=== PATIENT | female | born 1960 | race Caucasian/White ===

== ENCOUNTER → 2019-01-23 | Outpatient (CLI) | payer BC ==
[2019-01-23 15:06] LABS: Anisocytosis Slight; Basophils # (A) 0.1 k/uL (0-0.2); Basophils % (A) 1 %; Eosinophils # (A) 0.2 k/uL (0-0.7); Eosinophils % (A) 2 %; HCT 45.7 % (34.0-46.0); HGB 15.1 gm/dL (11.4-16.0); Lymphocytes # (A) 2.1 k/uL (1.0-4.8); Lymphocytes % (A) 21 %; MCH 28.4 pg (25.0-35.0); MCHC 33.1 g/dL (31.0-37.0); MCV 85.9 fL (80.0-100.0); Mean Platelet Volume 6.8; Monocytes # (A) 0.6 k/uL (0-1.0); Monocytes % (A) 6 %; Neutrophils # (A) 6.7 k/uL (1.3-7.7); Neutrophils % (A) 69 %; Platelet Count 251 k/uL (150-450); RBC 5.32 m/uL (3.80-5.40); RDW 16.1 % (11.5-15.5); WBC 9.8 k/uL (3.8-10.6)
[2019-01-23 15:16] LABS: Potassium 4.3 mmol/L (3.5-5.1)
== END | disposition home or self-care (01) ==
LOC: LABPAT 13:33
PROVIDERS: ATTEND Orthopaedic Surgery
DX: Z01.818 Encounter for other preprocedural examination (principal); Z01.812 Encounter for preprocedural laboratory examination; M75.41 Impingement syndrome of right shoulder
CPT/HCPCS: 36415; 80051; 85025; 93005

== ENCOUNTER 2019-02-08 07:29 | Day surgery (SDC) | payer BC, OTHER ==
[2019-01-25 10:33] VITALS: BMI 41.1
--- NOTE | 2019-02-07 14:06 | HP ---
HISTORY AND PHYSICAL DATE OF SURGERY: 02/08/2019 Gail Arvizu is a 58-year-old patient seen with progressive right shoulder pain. We discussed treatment options with her. She elected to proceed with arthroscopy. Consent was obtained. PAST MEDICAL HISTORY: Hypertension, hyperlipidemia. PAST SURGICAL HISTORY: Left knee arthroscopy. DAILY MEDICATIONS: Losartan and simvastatin. ALLERGIES: PENICILLIN. SOCIAL HISTORY: She denies tobacco use. PHYSICAL EVALUATION RIGHT SHOULDER: Flexion 130 degrees, abduction 120 degrees, external rotation is 30 degrees with weakness, tenderness along the anterolateral acromion rotator cuff insertion site. Drop-arm sign positive. Distal neurovascular exam intact. RIGHT SHOULDER RADIOGRAPHS: Revealed a type 2 anterior acromion. Cystic changes of the tuberosity and glenohumeral joint osteoarthritis. A right shoulder MRI revealed retracted rotator cuff tendon tear. IMPRESSION: 1. Right shoulder impingement with rotator cuff tear. 2. Right shoulder acromioclavicular joint osteoarthritis. 3. Hypertension. 4. Hyperlipidemia. PLAN: Right shoulder arthroscopy with subacromial decompression, possible arthroscopic rotator cuff repair, possible Titi procedure and debridement. MMODL / IJN: [id number] /
[~2019-02-08 07:29] MED LIST: DEXAMETHASONE SOD PHOSPHATE 10 MG/ML 1 ML VIAL IV ONE; HYDROmorphone 0.5 MG/0.5 ML SYRINGE IVP PRN; KETOROLAC 30 MG/ML 1 ML VIAL IVP SCH; LACTATED RINGERS 1,000 ML IV SCH; LIDOCAINE 1% 20 ML VIAL (10MG/ML) FOR IV START INTRADERMA PRN; MIDAZOLAM 2 MG/2 ML VIAL IV PRN; ONDANSETRON 4 MG/2 ML VIAL IVP ONE; ONDANSETRON 4 MG/2 ML VIAL IVP PRN
--- NOTE | 2019-02-08 09:02 | P.ANPRN ---
Procedure Note - Anesthesia - Nerve Block Performed Right Interscalene Single Time Out Performed: Yes Date of Procedure: 02/08/19 Procedure Start Time: 08:45 Location of Patient Procedure: PreOp Indication: Acute Post-Operative Pain, Dx/Pain Location (Right Shoulder Pain), Requested by Surgeon Sedation Type: Sedate with meaningful contact maintained Preparation: Sterile Prep Position: Supine Catheter: None Needle Types: Pajunk Needle Gauge: 21 Ultrasound used to visualize needle placement: Yes Ultrasound used to observe medication spread: Yes Injectate: 0.5% Ropivacaine (see comment for volume) (20ml) Blood Aspirated: No Pain Paresthesia on Injection Noted: No Resistance on Injection: Normal Image Stored and Saved: Yes Events: Uneventful and Well Tolerated
[2019-02-08] MEDS ORDERED: MIDAZOLAM 2 MG/2 ML VIAL ONE (09:09)
[2019-02-08] MEDS ORDERED: SUCCINYLCHOLINE CHLORIDE 100 MG/5 ML SYR IV ONE (09:09)
[2019-02-08] MEDS ORDERED: LIDOCAINE 1% INJ 10MG/ML (20 ML MDV) ONE (09:09)
[2019-02-08] MEDS ORDERED: ROPIVACAINE 5 MG/ML 30 ML VIAL ONE (09:09)
[2019-02-08] MEDS ORDERED: ROCURONIUM BROMIDE 10 MG/ML 10 ML VIAL IV ONE (09:09)
[2019-02-08] MEDS ORDERED: NEOSTIGMINE 1 MG/ML 10 ML VIAL ONE (09:09)
[2019-02-08] MEDS ORDERED: ePHEDrine SULFATE/0.9% NACL/PF 50 MG/5 ML SYRINGE IV ONE (09:09)
[2019-02-08] MEDS ORDERED: GLYCOPYRROLATE 0.2 MG/ML 2 ML VIAL ONE (09:09)
[2019-02-08] MEDS ORDERED: LIDOCAINE 2%-EPI 1:100,000 20 ML VIAL ONE (09:09)
[2019-02-08] MEDS ORDERED: PROPOFOL 10 MG/ML 20 ML VIAL IV ONE (09:09)
[2019-02-08] MEDS ORDERED: PHENYLEPHRINE-0.9% NACL SYG 1 MG/10 ML SYRINGE ONE (09:09)
[2019-02-08] MEDS ORDERED: LACTATED RINGERS 1,000 ML IV ONE (10:43)
--- NOTE | 2019-02-08 11:33 | P.OP ---
Date of Procedure: 02/08/19 Preoperative Diagnosis: Right shoulder impingement Postoperative Diagnosis: 1. Right shoulder rotator cuff tear 2. Right shoulder impingement 3. Right shoulder acromioclavicular joint osteoarthritis 4. Right shoulder partial long head biceps tendon tear 5. Right shoulder superficial labral tear Procedure(s) Performed: 1. Right shoulder arthroscopic rotator cuff repair 2. Right houlder arthroscopic subacromial decompression 3. Right shoulder arthroscopic Titi procedure 4. Right shoulder arthroscopic biceps tenotomy 5. Right shoulder arthroscopic debridement labral tear Implants: 44.75 Arthrex swivel lock anchors Anesthesia: GETA, regional (Interscalene block) Surgeon: Jeff Velazquez First Officer #1: Ovi Tracey Estimated Blood Loss (ml): 10 Pathology: none sent Condition: stable Disposition: PACU Indications for Procedure: 58-year-old patient seen with progressive right shoulder pain. After treatment options were discussed, she elected to proceed with arthroscopy. Operative Findings: see description of procedure Description of Procedure: Patient underwent an interscalene block by department of anesthesia for postoperative pain management. The patient was then taken to the operative suite. The patient underwent a general anesthetic by the department of anesthesia. The patient was placed into a lateral position and secured. There was appropriate padding of the bony prominence. Right shoulder was then prepped and draped in normal sterile orthopedic fashion. We placed the extremity in 10 pounds of longitudinal traction. A posterior incision was now made for a posterior working portal site. The trocar and cannula were inserted into the glenohumeral joint. Arthroscopy was initiated. Spinal needle was now inserted anteriorly, to ascertain the anterior working portal site. An incision was now made in that area, a trocar was inserted followed by a probe. There was superficial tearing of the superior labrum. Some hyperemia and partial tearing of the long head biceps tendon. I could visualize a massive rotator cuff tear from the glenohumeral side. There were some grade 2 chondral malacia changes of the humeral head with no osteochondral tears present. I performed an arthroscopic biceps tenotomy. I debrided the superficial labral tears getting down to stable labral tissue. The residual labrum was probed and found to be stable. Instruments were now removed from the glenohumeral joint. Utilizing the posterior working portal site, the trocar and cannula were inserted into the subacromial space. Arthroscopy initiated. I made an incision 2 fingerbreadths lateral to the acromion. I introduced my trocar followed by my ArthroCare ablator. I now began ablating thick subacromial bursal tissue, which exposed the undersurface of the anterior acromion. There was diminished subacromial space. There was a very prominent anterior acromion. A motorized bur was introduced and a subacromial decompression was performed. I also excised some osteophytes off the inferior aspect of the distal clavicle. The AC joint was visualized and noted to be fairly arthritic. The motorized bur was introduced in the anterior portal site and a Titi procedure was performed without difficulty, decompressing the AC joint nicely. I turned my attention to the rotator cuff. There was a 3 cm rotator cuff tear. I debrided the margins getting down to stable tendon tissue. I introduced my motorized bur and abraded the footprint area, getting some petechial bleeding. I noted a intersubstance tear posteriorly and passed 2 [id number] sutures to repair that. I now made an accessory portal site off the lateral aspect of the acromion. I punched 2 holes medial for medial row fixation with the assistance of George garcia tapping the punch with a mallet as I held the punch and the camera. I now introduced both anchors into the pre-punched holes and George LU tapped them with the mallet as I held anchors and the camera. George LU now screwed the anchors in place a while I held the anchor guide and camera. All 8 limbs of suture were now passed through good bites of rotator cuff tendon. I now punched 2 holes for lateral row fixation again I held the punch and camera while George LU used a mallet to tap in the punch. We now passed sutures through both anchors and individually I introduced the anchors into the pre- punch holes I held the anchor guide in position with one hand holding the camera with the other hand while George LU tensioned the sutures and screwed in the anchors one at a time. All residual suture limbs were now clipped. We had good compression of the tendon along the entire footprint. I injected 1 mL Renyte intra-articular. Instruments now removed from the portal sites. All portal sites were approximated with nylon suture. Sterile dressings were applied followed by a shoulder immobilizer. Ovi branch PA assisted in this complex case. The patient was awakened, transferred to a bed, and taken to recovery in stable condition.
[2019-02-08 11:38] VITALS: TEMP 96.8
[2019-02-08] MEDS ORDERED: ONDANSETRON 4 MG/2 ML VIAL IVP ONE (12:15)
[2019-02-08 13:13] VITALS: BP 150/84; PULSE 68; RESP 20
== END 2019-02-08 13:33 | disposition home or self-care (01) ==
LOC: OR 07:29
PROVIDERS: ATTEND Orthopaedic Surgery
DX: M75.101 Unspecified rotator cuff tear or rupture of right shoulder, not specified as traumatic (principal); M75.41 Impingement syndrome of right shoulder; M19.011 Primary osteoarthritis, right shoulder; S46.111A Strain of muscle, fascia and tendon of long head of biceps, right arm, initial encounter; S43.491A Other sprain of right shoulder joint, initial encounter; X58.XXXA Exposure to other specified factors, initial encounter; M94.211 Chondromalacia, right shoulder; M25.711 Osteophyte, right shoulder; I10 Essential (primary) hypertension; E78.5 Hyperlipidemia, unspecified; G51.0 Bell's palsy; Z98.890 Other specified postprocedural states; Z79.899 Other long term (current) drug therapy; Z88.0 Allergy status to penicillin
CPT/HCPCS: 29824; 29827; 29826; 64415; 76942; C1713 ×2; C1765; J2250; J1100; J2710; J0690; J2405; J2001; J2795; J2370; J0330; J2704

== ENCOUNTER → 2023-03-18 | Outpatient (CLI) | payer BC ==
--- NOTE | 2023-03-22 08:07 | MM ---
Reason for Exam: Screening (asymptomatic). Last mammogram was performed 5 year(s) and 7 month(s) ago. Patient History: Menarche at age 10. First Full-Term at age 22. Postmenopausal. Risk Values: Isabelle 5 year model risk: 1.5%. NCI Lifetime model risk: 6.6%. Prior Study Comparison: 08/19/2017 Bilateral Screening Mammogram, [facility]. Tissue Density: The breast tissue is heterogeneously dense. This may lower the sensitivity of mammography. Findings: Analyzed By CAD. Pattern appears symmetrical and stable. No significant interval changes are evident. Benign vascular calcification is present. There are a few scattered benign punctate calcifications. No suspicious groups of microcalcifications, spiculated or lobular masses, architectural distortion or other secondary signs of malignancy are mammographically apparent. Overall Assessment: Benign, BI-RAD 2 Management: Screening Mammogram of both breasts in 1 year. A negative mammogram report should not preclude additional follow up of suspicious palpable abnormalities. Patient should continue monthly self breast exam. A clinical breast exam by your physician is recommended on an annual basis and results should be correlated with mammographic findings. Electronically signed and approved by: Ben Domingo D.O. Radiologis
== END | disposition home or self-care (01) ==
LOC: RADMAMWWP 13:55
PROVIDERS: ATTEND Family Medicine
DX: Z12.31 Encounter for screening mammogram for malignant neoplasm of breast (principal); Z78.0 Asymptomatic menopausal state
CPT/HCPCS: 77063; 77067

== ENCOUNTER → 2023-04-02 | Outpatient (CLI) | payer BC ==
--- NOTE | 2023-04-02 14:22 | US ---
EXAMINATION TYPE: US pelvic complete DATE OF EXAM: 04/02/2023 COMPARISON: NONE CLINICAL INDICATION: Female, 62 years old with history of N93.9 ABNORMAL UTERINE AND VAGINAL BLEEDING , N92.1; Vaginal bleeding between spotting and regular period ? due to reduction in hypertension medi cations. . Patient denies any other signs or symptoms. TECHNIQUE: . Transabdominal sonographic images of the pelvis were acquired. Transvaginal sonographi c images were medically necessary to better assess the following anatomy: Date of LMP: 10 years ago EXAM MEASUREMENTS: Uterus: 7.5 x 3.8 x 5.4 cm heterogenous vs small fibroid formations at fundus Endometrial Stripe: 1.0 cm echogenic avascular area = 0.7 x 0.6 x 0.6 cm Right Ovary: 2.7 x 1.5 x 1.9 cm Limited visualization transabdominal; WNL TV Left Ovary: 2.0 x 2.0 x 1.7 cm Limited visualization transabdominal; Not visualized transvaginally Uterus: 7.5 x 3.8 x 5.4 cm Endometrial Stripe: 1.0 cm Right Ovary: 2.7 x 1.5 x 1.9 cm Limited visualization transabdominal; WNL TV Left Ovary: 2.0 x 2.0 x 1.7 cm Limited visualization transabdominal; Not visualized transvaginally 5. Bilateral Adnexa: wnl 6. Posterior cul-de-sac: trace fluid IMPRESSION: Thickened endometrium with possible submucosal fibroid versus polyp. Direct visualization recommended .
== END | disposition home or self-care (01) ==
LOC: RADUSWWP 12:06
PROVIDERS: ATTEND Family Medicine
DX: N93.9 Abnormal uterine and vaginal bleeding, unspecified (principal); N92.1 Excessive and frequent menstruation with irregular cycle; N85.8 Other specified noninflammatory disorders of uterus
CPT/HCPCS: 76856

== ENCOUNTER → 2023-05-03 | Outpatient (CLI) | payer BC ==
[2023-05-03 15:10] LABS: Basophils # (A) 0.03 X 10*3/uL (0.00-0.10); Basophils % (A) 0.6 %; Eosinophils # (A) 0.13 X 10*3/uL (0.04-0.35); Eosinophils % (A) 2.4 %; HCT 42.8 % (37.2-46.3); Lymphocytes # (A) 1.51 X 10*3/uL (0.90-5.00); Lymphocytes % (A) 27.9 %; MCH 28.4 pg (27.0-32.0); MCHC 32.7 g/dL (32.0-37.0); MCV 86.8 FL (80.0-97.0); Mean Platelet Volume 10.1 FL (9.5-12.2); Monocytes # (A) 0.45 X 10*3/uL (0.20-1.00); Monocytes % (A) 8.3 %; NRBC Per 100 WBC 0 X 10*3/uL (0.00-0.01); Neutrophils # (A) 3.29 X 10*3/uL (1.80-7.70); Neutrophils % (A) 60.6 %; Platelet Count 245 X 10*3/uL (140-440); RBC 4.93 X 10*6/uL (4.10-5.20); RDW 13.1 % (11.5-14.5); WBC 5.42 X 10*3/uL (4.50-10.00)
== END | disposition home or self-care (01) ==
LOC: LABPAT 11:33
PROVIDERS: ATTEND Obstetrics & Gynecology Obstetrics
DX: Z01.812 Encounter for preprocedural laboratory examination (principal); N95.0 Postmenopausal bleeding; R93.89 Abnormal findings on diagnostic imaging of other specified body structures; I10 Essential (primary) hypertension; I44.4 Left anterior fascicular block; R94.31 Abnormal electrocardiogram [ECG] [EKG]; I21.19 ST elevation (STEMI) myocardial infarction involving other coronary artery of inferior wall
CPT/HCPCS: 85025; 93005

== ENCOUNTER 2023-05-18 07:09 | Day surgery (SDC) | payer BC ==
[2023-05-05 15:47] VITALS: BMI 32.5
[~2023-05-18 07:09] MED LIST changes: -DEXAMETHASONE SOD PHOSPHATE 10 MG/ML 1 ML VIAL IV ONE; -HYDROmorphone 0.5 MG/0.5 ML SYRINGE IVP PRN; -KETOROLAC 30 MG/ML 1 ML VIAL IVP SCH; -LACTATED RINGERS 1,000 ML IV SCH; -LIDOCAINE 1% 20 ML VIAL (10MG/ML) FOR IV START INTRADERMA PRN; -MIDAZOLAM 2 MG/2 ML VIAL IV PRN; -ONDANSETRON 4 MG/2 ML VIAL IVP ONE; -ONDANSETRON 4 MG/2 ML VIAL IVP PRN; +Pre Op ABX Message 1 EACH MISC MISCELLANE ONE
[2023-05-18] MEDS ORDERED: HYDROmorphone 0.5 MG/0.5 ML SYRINGE IVP PRN (07:30)
[2023-05-18] MEDS ORDERED: LIDOCAINE 1% (10MG/ML) FOR IV START INTRADERMA PRN (07:30)
[2023-05-18] MEDS ORDERED: DEXAMETHASONE SOD PHOSPHATE 4 MG/ML 1 ML VIAL IV ONE (07:30)
[2023-05-18] MEDS ORDERED: ONDANSETRON 4 MG/2 ML VIAL IVP ONE (07:30)
[2023-05-18] MEDS ORDERED: fentaNYL (PF) 50 MCG/ML 2 ML AMP IV PRN (07:30)
[2023-05-18] MEDS ORDERED: MIDAZOLAM 2 MG/2 ML VIAL IV PRN (07:30)
[2023-05-18] MEDS ORDERED: LACTATED RINGERS 1,000 ML IV SCH (07:30)
[2023-05-18] MEDS ORDERED: LACTATED RINGERS 1,000 ML IV ONE (07:43)
[2023-05-18 07:48] VITALS: TEMP 98.5
[2023-05-18] MEDS ORDERED: SCOPOLAMINE 1 MG/72 HR PATCH TRANSDERM ONE (07:54)
[2023-05-18] MEDS ORDERED: MIDAZOLAM 2 MG/2 ML VIAL ONE (09:04)
[2023-05-18] MEDS ORDERED: KETOROLAC 30 MG/ML 1 ML VIAL ONE (09:04)
[2023-05-18] MEDS ORDERED: PROPOFOL 10 MG/ML 20 ML VIAL IV ONE (09:04)
[2023-05-18] MEDS ORDERED: fentaNYL (PF) 50 MCG/ML 2 ML AMP ONE (09:04)
[2023-05-18] MEDS ORDERED: LIDOCAINE 1% INJ 10MG/ML (20 ML MDV) ONE (09:04)
--- NOTE | 2023-05-18 09:40 | P.OP ---
Date of Procedure: 05/18/23 Preoperative Diagnosis: Post menopausal bleeding, thickened endometrium Postoperative Diagnosis: Same plus endometrial polyp Procedure(s) Performed: Hysteroscopy, dilation and curettage Anesthesia: MAC Surgeon: Dominga Andino Estimated Blood Loss (ml): 5 IV fluids (ml): 300 Urine output (ml): 100 Pathology: other (Endometrial curettings) Condition: stable Disposition: PACU Indications for Procedure: Postmenopausal bleeding Operative Findings: Thickened endometrium with endometrial polyps are appreciated. Description of Procedure: Patient was taken back to the operating suite where general anesthesia was obtained without difficulty by the anesthesia department. She was prepped and draped in normal sterile fashion in the dorsal lithotomy position. Red rubber catheter was used to drain the bladder clear yellow urine. A weighted speculum posterior vaginal vault and the anterior lip of the cervix is visualized and grasped with a single-tooth tenaculum. Endocervical canal was then serially dilated. The hysteroscope was then placed through the cervix and toward the endometrial cavity with multiple polyps were appreciated. A gentle sharp curettage was then performed and the polyps were noted within the curettage. The specimen was then sent to pathology for analysis. The single-tooth tenaculum was taken off of the anterior lip of the cervix and hemostasis was appreciated. All counts were noted to be correct 2. Patient tolerated procedure well was taken the recovery room awake in stable condition.
[2023-05-18 11:01] VITALS: BP 155/87; PULSE 52; RESP 18
== END 2023-05-18 11:05 | disposition home or self-care (01) ==
LOC: OR 07:09
PROVIDERS: ATTEND Obstetrics & Gynecology Obstetrics
DX: C54.1 Malignant neoplasm of endometrium (principal); N84.0 Polyp of corpus uteri; I10 Essential (primary) hypertension; Z79.82 Long term (current) use of aspirin; Z79.899 Other long term (current) drug therapy; Z91.048 Other nonmedicinal substance allergy status
CPT/HCPCS: 58558; 88305; 88342; 88341; J2250; J1100; J2405; J2001; J3010; J1885; J2704

== ENCOUNTER → 2023-07-07 | Outpatient (CLI) | payer BC ==
--- NOTE | 2023-07-07 15:32 | CT ---
EXAMINATION: CT ABDOMEN AND PELVIS WITH IV CONTRAST DATE OF EXAMINATION: 07/07/2023. COMPARISON: None available. INDICATION: New diagnosis of ovarian cancer. PROCEDURE: Axial CT of the abdomen and pelvis was performed with contrast and sagittal and coronal reformatted images were performed. CT dose lowering techniques were used, to include: automated expos ure control, adjustment for patient size, and/or use of iterative reconstruction. 100 mL of Isovue-37 0 was given intravenously. FINDINGS: LOWER CHEST : The visualized lung bases are clear. There are no pleural or pericardial effusions. ABDOMEN: Liver and Biliary system: Probable cyst within the left lobe of the liver. A subcentimeter hypodensi ty is also seen within the left lobe of liver that is too small to fully characterize. Adrenal glands: Normal. Kidneys and ureters: There is a nonobstructing 3 mm stone in the inferior pole the right kidney. The kidneys otherwise appear unremarkable. Spleen: Normal. Pancreas: Normal. Gallbladder: Normal. Lymph nodes, Peritoneum and mesentery: There is no mesenteric or retroperitoneal lymphadenopathy. Gastrointestinal tract: There are no dilated loops of bowel or free intraperitoneal air. The appe ndix is normal. There is mild descending colonic and sigmoid colonic diverticulosis without evidence of diverticulitis. Aorta/IVC: No aortic aneurysm. IVC normal. Abdominal wall: Normal. PELVIS: Fluid: There is no free fluid in the pelvis. Lymph Nodes: There is no pelvic or inguinal lymphadenopathy.. Urinary bladder: Normal. BONES: Some mild scattered degenerative changes are seen within the spine. There are no acute osseou s abnormalities. 5. Nonobstructing right renal stone.. ADDITIONAL SIGNIFICANT FINDINGS: None. IMPRESSION: 1. The ovaries are not well evaluated on this examination. 2. No definitive evidence of metastatic disease. 3. Diverticulosis without evidence of diverticulitis. 4. Probable cyst within the left lobe of the liver as well as additional subcentimeter hypodensities are too small to fully characterize and indeterminate.
--- NOTE | 2023-07-08 14:27 | XR ---
EXAMINATION TYPE: XR chest 2V DATE OF EXAM: 07/07/2023 COMPARISON: NONE TECHNIQUE: PA and lateral views submitted. HISTORY: Presurgical FINDINGS: The lungs are clear and there is no pneumothorax, pleural effusion, or focal pneumonia. Heart size normal and no overt failure. Osseous structures demonstrate hypertrophic and degenerative changes of the spine. Underlying emphysematous changes. Diffuse osteopenia. Area of increased density left lung base likely on the basis of atelectasis. IMPRESSION: 1. No acute process. There is a subsegmental density in the left lung base nonspecific but most likel y on the basis of atelectasis..
== END | disposition home or self-care (01) ==
LOC: RADCTMAIN 12:27
PROVIDERS: ATTEND Obstetrics & Gynecology
DX: C54.1 Malignant neoplasm of endometrium (principal); C56.9 Malignant neoplasm of unspecified ovary; K57.90 Diverticulosis of intestine, part unspecified, without perforation or abscess without bleeding
CPT/HCPCS: 71046; 74177; Q9967

== ENCOUNTER 2023-12-21 08:59 | Day surgery (SDC) | payer BC ==
[2023-12-21] MEDS ORDERED: LACTATED RINGERS 1,000 ML BAG ONE (10:00)
[2023-12-21] MEDS ORDERED: LIDOCAINE 1% INJ 10MG/ML (20 ML MDV) ONE (10:46)
[2023-12-21] MEDS ORDERED: PROPOFOL 10 MG/ML 20 ML VIAL IV ONE (10:46)
--- NOTE | 2024-01-12 13:02 | P.PCN ---
Date of Procedure: 12/21/23 Procedure(s) Performed: This an addendum to the procedure was performed on 12/21/2023 Procedure performed colonoscopy Procedure: The colonoscopy was inserted the rectum and advanced all the way into the cecum and careful examination was performed as the scope was gradually being withdrawn
== END 2023-12-21 11:41 | disposition home or self-care (01) ==
LOC: ORWHC2ENDO 08:59
PROVIDERS: ATTEND Internal Medicine Gastroenterology
DX: Z12.11 Encounter for screening for malignant neoplasm of colon (principal); I10 Essential (primary) hypertension; E78.5 Hyperlipidemia, unspecified; Z91.09 Other allergy status, other than to drugs and biological substances; Z79.899 Other long term (current) drug therapy; Z79.82 Long term (current) use of aspirin
CPT/HCPCS: 45378

== ENCOUNTER → 2024-03-30 | Outpatient (CLI) | payer BC ==
--- NOTE | 2024-03-31 22:25 | MM ---
Reason for Exam: Screening (asymptomatic). Last screening mammogram was performed 12 month(s) ago. Patient History: Menarche at age 10. First Full-Term at age 22. Left ovary removed at age 63. Right ovary removed at age 63. Hysterectomy at age 63. Postmenopausal. Risk Values: Isabelle 5 year model risk: 1.6%. NCI Lifetime model risk: 6.4%. Prior Study Comparison: 08/19/2017 Bilateral Screening Mammogram, [facility]. 03/18/2023 Bilateral MG 3D screening mammo w/cad, [facility]. Tissue Density: The breasts are heterogeneously dense, which may obscure small masses. Findings: Analyzed By CAD. The pattern is symmetrical. Benign vascular calcifications present bilaterally scattered round benign calcifications are present bilaterally. Within the left mediolateral oblique view anterior position there is some architectural distortion appears to be increasing. Additional workup recommended Right breast:No suspicious groups of microcalcifications, spiculated or lobular masses, architectural distortion or other secondary signs of malignancy are mammographically apparent. Overall Assessment: Incomplete: need additional imaging evaluation, BI-RAD 0 Management: Diagnostic Mammogram of the left breast. A negative mammogram report should not preclude additional follow up of suspicious palpable abnormalities. Patient should continue monthly self breast exam. A clinical breast exam by your physician is recommended on an annual basis and results should be correlated with mammographic findings. Note on Isabelle scores and lifetime risk: 1. A Isabelle score greater than 3% is considered moderate risk. If this is the case, consider specialist referral to assess eligibility for a risk reducing agent. 2. If overall lifetime risk for the development of breast cancer is 20% or higher, the patient may qualify for future screening with alternating mammogram and breast MRI. [facility], , 03/31/2024 10:22 PM. Electronically signed and approved by: Ben Domingo D.O. Radiologis
== END | disposition home or self-care (01) ==
LOC: RADMAMWWP 14:10
PROVIDERS: ATTEND Obstetrics & Gynecology Obstetrics
DX: Z12.31 Encounter for screening mammogram for malignant neoplasm of breast (principal); R92.333 Mammographic heterogeneous density, bilateral breasts; Z78.0 Asymptomatic menopausal state; Z90.722 Acquired absence of ovaries, bilateral
CPT/HCPCS: 77063; 77067

== ENCOUNTER → 2024-04-04 | Outpatient (CLI) | payer BC ==
--- NOTE | 2024-04-04 09:22 | MM ---
Reason for Exam: Additional evaluation requested from abnormal screening. Last screening mammogram was performed less than 1 month ago. Patient History: Menarche at age 10. First Full-Term at age 22. Left ovary removed at age 63. Right ovary removed at age 63. Hysterectomy at age 63. Postmenopausal. Endometrial cancer, age 63. Patient used Hormonal Contraceptives for 1 year. Risk Values: Isabelle 5 year model risk: 1.6%. NCI Lifetime model risk: 6.4%. Prior Study Comparison: 08/19/2017 Bilateral Screening Mammogram, [facility]. 03/18/2023 Bilateral MG 3D screening mammo w/cad, [facility]. 03/30/2024 Bilateral MG 3D screening mammo w/cad, [facility]. Tissue Density: Left: The breasts are heterogeneously dense, which may obscure small masses. Findings: Analyzed By CAD. Areas of distortion inferior left breast seen on the MLO view improve upon spot compression imaging appear to have been present dating back to 2018. Precautionary six-month follow-up is advised. Overall Assessment: Probably benign, BI-RAD 3 Management: Diagnostic Mammogram of the left breast in 6 months. . Results were given to the patient verbally at the time of exam. Patient should continue monthly self-breast exams. A clinical breast exam by your physician is recommended on an annual basis. This exam should not preclude additional follow-up of suspicious palpable abnormalities. Note on Isabelle scores and lifetime risk: 1. A Isabelle score greater than 3% is considered moderate risk. If this is the case, consider specialist referral to assess eligibility for a risk reducing agent. 2. If overall lifetime risk for the development of breast cancer is 20% or higher, the patient may qualify for future screening with alternating mammogram and breast MRI. [facility], , 04/04/2024 9:02 AM. Electronically signed and approved by: Jason England M.D. Radiologis
== END | disposition home or self-care (01) ==
LOC: RADMAMWWP 08:33
PROVIDERS: ATTEND Obstetrics & Gynecology Obstetrics
DX: R92.8 Other abnormal and inconclusive findings on diagnostic imaging of breast (principal); Z78.0 Asymptomatic menopausal state; Z90.722 Acquired absence of ovaries, bilateral; R92.332 Mammographic heterogeneous density, left breast
CPT/HCPCS: 77061; 77065

== ENCOUNTER → 2024-09-26 | Outpatient (CLI) | payer BC ==
--- NOTE | 2024-09-26 11:24 | MM ---
Reason for Exam: Follow-up at short interval from prior study. Last screening mammogram was performed 6 month(s) ago. Patient History: Menarche at age 10. First Full-Term at age 22. Left ovary removed at age 63. Right ovary removed at age 63. Hysterectomy at age 63. Postmenopausal. Endometrial cancer, age 63. Patient used Hormonal Contraceptives for 1 year. Risk Values: Isabelle 5 year model risk: 1.6%. NCI Lifetime model risk: 6.2%. Prior Study Comparison: 03/18/2023 Bilateral MG 3D screening mammo w/cad, [facility]. 03/30/2024 Bilateral MG 3D screening mammo w/cad, [facility]. 04/04/2024 Left MG 3D work up w/cad , [facility]. Tissue Density: Left: The breasts are heterogeneously dense, which may obscure small masses. Findings: Analyzed By CAD. No suspicious new mass or cluster of microcalcifications in the left breast. Benign-appearing vascular calcifications superiorly is redemonstrated. Overall Assessment: Negative, BI-RAD 1 Management: Screening Mammogram of both breasts in 6 months. Return to annual follow-up. Results were given to the patient verbally at the time of exam. Patient should continue monthly self-breast exams. A clinical breast exam by your physician is recommended on an annual basis. This exam should not preclude additional follow-up of suspicious palpable abnormalities. Note on Isabelle scores and lifetime risk: 1. A Isabelle score greater than 3% is considered moderate risk. If this is the case, consider specialist referral to assess eligibility for a risk reducing agent. 2. If overall lifetime risk for the development of breast cancer is 20% or higher, the patient may qualify for future screening with alternating mammogram and breast MRI. [facility], , 09/26/2024 11:21 AM. Electronically signed and approved by: Alli Cotter M.D.
== END | disposition home or self-care (01) ==
LOC: RADMAMWWP 10:52
PROVIDERS: ATTEND Obstetrics & Gynecology Obstetrics
DX: R92.8 Other abnormal and inconclusive findings on diagnostic imaging of breast (principal); R92.332 Mammographic heterogeneous density, left breast; R92.1 Mammographic calcification found on diagnostic imaging of breast; Z78.0 Asymptomatic menopausal state; Z92.0 Personal history of contraception
CPT/HCPCS: 77061; 77065